=== PATIENT | female | born 1945 | race Caucasian/White ===

== ENCOUNTER 2020-10-10 05:42 | Emergency (ER) | payer OTHER ==
[~2020-10-10] VITALS: Ht 165.1 cm; Wt 100.2 kg
[2020-10-10 06:38] LABS: ABSOLUTE NEUTROPHILS 7.5 thou/uL (1.4-8.2); EOSINOPHILS 0.7 % (0.0-3.0); HEMATOCRIT 41.6 % (37.0-47.0); HEMOGLOBIN 13.6 gm/dL (12.0-15.0); LYMPHOCYTES 28.3 % (24.0-44.0); MCH 30.5 pg (26.0-34.0); MCHC 32.7 g/dL (28.0-37.0); MCV 93.3 fL (80.0-100.0); MONOCYTES 4.3 % (1.0-8.0); PLATELET COUNT 312 thou/uL (150-400); POLYS 65.7 % (36.0-66.0); RBC 4.46 mil/uL (4.20-5.00); RDW 12.5 % (10.5-14.5); WBC 11.4 thou/uL (4.0-11.0)
[2020-10-10 06:43] LABS: POTASSIUM 4.6 mmol/L (3.5-5.1)
[2020-10-10] MEDS ORDERED: TRAMADOL 50 MG50 MG PO (06:44)
[2020-10-10] MEDS ORDERED: NEXIUM 40 MG CA40 M1 PO (06:45)
[2020-10-10] MEDS ORDERED: DOXYCYCLINE PO ×2 (06:45)
[2020-10-10] MEDS ORDERED: CRESTOR40 MG PO (06:46)
[2020-10-10] MEDS ORDERED: LOPRESSOR50 MG PO (06:46)
[2020-10-10] MEDS ORDERED: GLYBURIDE 5 MG T5 M1 PO (06:47)
[2020-10-10] MEDS ORDERED: DICLOFENAC PO ×2 (06:47)
[2020-10-10] MEDS ORDERED: SUPER THERAVIT1 EACH PO (06:47)
[2020-10-10] MEDS ORDERED: ASA PO ×2 (06:47)
[2020-10-10] MEDS ORDERED: ZESTRIL5 MG PO (06:48)
[2020-10-10 06:54] LABS: ALBUMIN 3.9 g/dL (3.4-5.0); TOTAL BILIRUBIN 0.4 mg/dL (0.2-1.0); TOTAL PROTEIN 7.1 g/dL (6.4-8.2)
[2020-10-10 08:59] LABS: URINE BILIRUBIN NEGATIVE (Negative); URINE BLOOD 1+ (Negative); URINE CLARITY CLEAR; URINE COLOR YELLOW; URINE GLUCOSE-RANDOM* NEGATIVE (Negative); URINE KETONES NEGATIVE (Negative); URINE LEUKOCYTES-REFLEX NEGATIVE (Negative); URINE NITRITE-REFLEX NEGATIVE (Negative); URINE PROTEIN (DIPSTICK) NEGATIVE (Negative); URINE SPECIFIC GRAVITY <= 1.005 (1.005-1.035)
[2020-10-10 09:20] LABS: SQUAMOUS 0-3 Few /LPF (0-3)
[2020-10-10 09:21] LABS: BACTERIA-REFLEX 1-9 Few /HPF (None Seen); CASTS None Seen /LPF (None Seen); CRYSTALS None Seen /LPF (None Seen); URINE RBC 3-10 Few /HPF (NONE SEEN); URINE WBC-REFLEX 0-5 Rare /HPF (0-5)
[2020-10-10] MEDS ORDERED: ZOFRAN ODT4 MG PO ×3 (10:17→10:35)
[2020-10-10] MEDS ORDERED: MACROBID 100 M100 M1 PO ×3 (10:17→10:35)
[2020-10-10 10:38] VITALS: BP 115/54
--- NOTE | 2020-10-12 07:36 | EKG ---
[place] [address] [facility] [place] [address] ELECTROCARDIOGRAM REPORT Name: ASHA SEGOVIA 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 : 1945 Requested By: Lucho Szymanski Order Number: [id number] MD: Álvaro Scott Measurements Intervals [place] Rate: 78 P: 47 TX: 166 QRS: -63 QRSD: 141 T: 22 QT: 412 QTc: 470 Interpretive Statements Sinus rhythm Probable left atrial enlargement RBBB and LAFB Baseline wander in lead(s) V1,V2 No previous ECG available for comparison Electronically Signed On 10-12-2020 7:36:13 CDT by Álvaro Scott [email or web address] <ELECTRONICALLY SIGNED> By: Álvaro Scott MD, [facility] 10/12/20 0736 0550 0550 Álvaro Scott MD, FACC /EPI
== END 2020-10-10 10:38 | disposition home or self-care (01) ==
LOC: ER 05:42
PROVIDERS: Emergency Medicine
DX: N39.0 Urinary tract infection, site not specified (principal); M54.9 Dorsalgia, unspecified; R07.89 Other chest pain; K80.80 Other cholelithiasis without obstruction; E11.9 Type 2 diabetes mellitus without complications; Z90.710 Acquired absence of both cervix and uterus; Z90.89 Acquired absence of other organs; Z79.899 Other long term (current) drug therapy; Z88.0 Allergy status to penicillin; Z88.2 Allergy status to sulfonamides; Z91.013 Allergy to seafood; Z88.1 Allergy status to other antibiotic agents

== ENCOUNTER 2020-10-12 09:39 | Emergency (ER) | payer OTHER ==
[~2020-10-12] VITALS: Ht 165.1 cm; Wt 100.2 kg
[~2020-10-12 09:39] MED LIST: ASA PO; CRESTOR40 MG PO; DICLOFENAC PO; DOXYCYCLINE PO; GLYBURIDE 5 MG T5 M1 PO; LOPRESSOR50 MG PO; MACROBID 100 M100 M1 PO; NEXIUM 40 MG CA40 M1 PO; SUPER THERAVIT1 EACH PO; TRAMADOL 50 MG50 MG PO; ZESTRIL5 MG PO; ZOFRAN ODT4 MG PO
[2020-10-12 09:56] LABS: URINE BILIRUBIN NEGATIVE (Negative); URINE BLOOD TRACE (Negative); URINE CLARITY CLEAR; URINE COLOR YELLOW; URINE GLUCOSE-RANDOM* NEGATIVE (Negative); URINE KETONES NEGATIVE (Negative); URINE NITRITE-REFLEX NEGATIVE (Negative); URINE PROTEIN (DIPSTICK) NEGATIVE (Negative)
[2020-10-12 10:06] LABS: ABSOLUTE NEUTROPHILS 8.3 thou/uL (1.4-8.2); BASOPHILS 0.8 % (0.0-2.0); EOSINOPHILS 0.6 % (0.0-3.0); HEMATOCRIT 41.3 % (37.0-47.0); HEMOGLOBIN 13.8 gm/dL (12.0-15.0); LYMPHOCYTES 32.1 % (24.0-44.0); MCH 30.9 pg (26.0-34.0); MCHC 33.4 g/dL (28.0-37.0); MCV 92.5 fL (80.0-100.0); MONOCYTES 5.7 % (1.0-8.0); PLATELET COUNT 337 thou/uL (150-400); POLYS 60.8 % (36.0-66.0); RBC 4.47 mil/uL (4.20-5.00); WBC 13.6 thou/uL (4.0-11.0)
[2020-10-12 10:09] LABS: URINE LEUKOCYTES-REFLEX 1+ (Negative)
[2020-10-12 10:23] LABS: CALCIUM 9.2 mg/dL (8.5-10.1); CREATININE 1.1 mg/dL (0.6-1.0); POTASSIUM 4.2 mmol/L (3.5-5.1)
[2020-10-12 10:27] LABS: ALBUMIN 4.2 g/dL (3.4-5.0); TOTAL BILIRUBIN 0.4 mg/dL (0.2-1.0); TOTAL PROTEIN 7.8 g/dL (6.4-8.2)
[2020-10-12 10:28] LABS: SQUAMOUS 0-3 Few /LPF (0-3)
[2020-10-12 10:29] LABS: BACTERIA-REFLEX 1-9 Few /HPF (None Seen); CASTS None Seen /LPF (None Seen); CRYSTALS None Seen /LPF (None Seen); URINE RBC None Seen /HPF (NONE SEEN); URINE WBC-REFLEX 6-15 Few /HPF (0-5)
[2020-10-12] MEDS ORDERED: PHENERGAN 25 MG25 MG PO ×2 (14:24→14:27)
[2020-10-12 14:27] VITALS: BP 148/55
[2020-10-12] MEDS ORDERED: BENTYL 10 MG CA10 M1 PO (14:27)
== END 2020-10-12 14:27 | disposition home or self-care (01) ==
LOC: ER 09:39
PROVIDERS: Student in an Organized Health Care Education/Training Program
DX: M54.5 Low back pain (principal); R10.11 Right upper quadrant pain; E11.9 Type 2 diabetes mellitus without complications; Z90.710 Acquired absence of both cervix and uterus; Z90.89 Acquired absence of other organs; Z79.899 Other long term (current) drug therapy; Z88.0 Allergy status to penicillin; Z88.2 Allergy status to sulfonamides; Z88.1 Allergy status to other antibiotic agents; Z91.013 Allergy to seafood

== ENCOUNTER 2020-11-17 06:01 | Day surgery (SDC) | payer OTHER ==
[~2020-11-17] VITALS: Ht 165.1 cm; Wt 97.1 kg
[~2020-11-17 06:01] MED LIST changes: +ASA81BEC PO; +BENTYL 10 MG CA10 M1 PO; +CALCIUM 600 +1 EA14 PO; +CLARITIN10 MG PO; +DICLOFENAC SOD50 M1 PO; +GLIMEPIRIDE4 MG PO; +METOPROLOL TART25 MG PO; +PHENERGAN 25 MG25 MG PO; +VITAMIN B-121000 MCG PO; +WOMEN'S 50 PLU1 EAC1 PO
[2020-11-17 07:35] VITALS: BP 156/67
[2020-11-17] MEDS ORDERED: HYDROCODON-ACE1 EAC7 PO (09:06)
[2020-11-17 12:15] VITALS: BP 137/49
--- NOTE | 2020-11-17 14:25 | O ---
[facility] [address] [place] [address] OPERATIVE REPORT Name: ASHA SEGOVIA Room #: 444-P [facility]#: [id number] Admission: 11/17/20 Attend Phys: Dylan Kimball MD Discharge: Date of : 49 Report #: [id number] THIS REPORT FOR: cc: Rody Bullock MD,Rody Kimball,Dylan Day MD ~ cc: Dylna Kimball MD, Rody Bullock DATE OF SERVICE: 11/17/[address] Rody Bullock at [facility] and Dr. Dylan Kimball. PREOPERATIVE DIAGNOSES: Biliary colic, gallbladder sludge, cholecystitis. POSTOPERATIVE DIAGNOSES: Biliary colic, gallbladder sludge, cholecystitis. PROCEDURE: Laparoscopic cholecystectomy. SURGEON: Dr. Dylan Kimball. ANESTHESIA: General. DESCRIPTION OF PROCEDURE: The patient was brought to the operating room and placed on the operating table in the supine position. Sequential compression devices were placed for DVT prophylaxis. She received an appropriate preoperative dose of Mefoxin. The patient underwent a general endotracheal anesthesia and the abdomen was then prepped and draped in a sterile fashion. Skin and subcutaneous tissue around the umbilicus was then infiltrated with 0.5% Marcaine. A transverse infraumbilical skin incision was then performed using a #11 scalpel blade. Hemostasis obtained using electrocautery. Dissection was carried down through the subcutaneous tissue to the fascia, which was then grasped between 2 Tony clamps and incised with the curved Crandall scissors. Peritoneum was entered and a purse-string suture 0 Vicryl was then placed in the fascia. A 12 mm disposable Mario port was then inserted through the opening and held in place with the balloon port and the purse-string suture. Pneumoperitoneum was obtained. The level at 10-15 mmHg. Laparoscope was then inserted through this port and the two lateral 5 mm Surgiports as well as the upper midline 12 mm Surgiport were all inserted under direct visualization after infiltration with 0.5% Marcaine. An exploration was performed, which then revealed a slightly thickened dilated gallbladder. There were no other intra-abdominal abnormalities. The gallbladder was then grasped and retracted superiorly and the cystic duct and cystic artery were carefully dissected free. The triangle of safety was examined both medially and laterally and the cystic duct and cystic artery were clearly identified along with the cystic common bile duct junction. The cystic duct was then triply clipped on the common bile duct [address] [address] OPERATIVE REPORT Name: ASHA SEGOVIA Room #: 444-P [facility]#: [id number] Admission: 11/17/20 Attend Phys: Dylan Kimball MD Discharge: Date of : 49 Report #: [id number] side and doubly clipped on the gallbladder side and divided with the scissors. The cystic artery was then doubly clipped on each side and divided with the scissors. The gallbladder was then dissected free from the bed using the hook electrocautery. Prior to completing the dissection, the gallbladder was retracted superiorly and the bed inspected for hemostasis, which was obtained using the electrocautery and found to be intact. The gallbladder was then removed through the periumbilical port and sent as specimen to pathology. The port was then returned to the abdomen. The area was once again carefully inspected and hemostasis was found to be intact. The ports were then all removed under direct visualization, hemostasis intact at each port site. Pneumoperitoneum was released and the periumbilical port was then also removed under direct visualization, hemostasis intact at that port site as well. Periumbilical fascia was then closed using the 0 Vicryl purse-string suture. The skin was then closed using interrupted vertical mattress 5-0 nylon sutures and the wounds dressed with Band-Aids. The patient was then awakened from the general anesthesia, extubated, taken to the recovery room in good condition. Estimated blood loss was approximately 10 mL and the patient tolerated the procedure well. All sponge, lap and instrument counts were correct x2. <ELECTRONICALLY SIGNED> By: Dylan Kimball MD 11/17/20 1425 0942 1010 Dylan Kimball MD /nt
--- NOTE | 2020-11-17 15:45 | NUR ---
Pt transferred to unit from PACU. Pt a&ox4. Pain controlled with prn pain medications. IVF infusing. Able to ambulate and void. Tolerated diet well. Family at bedside. Call light within reach. Possible d/c to home later in the day. Will continue to monitor.
[2020-11-17 16:07] VITALS: BP 137/49
--- NOTE | 2020-11-19 12:07 | PATH ---
[facility] [address] [place] [place] [address] PATHOLOGY RPT PROCEDURE Name: ASHA SEGOVIA Room #: DEP [facility] M.R.#: [id number] Admission: 11/17/20 Date of : 49 Discharge: 11/17/20 Report #: [id number] Path Case #: [id number] [facility] Accession Number: [id number] . 01 Material submitted: . gallbladder - GALLBLADDER . 01 Clinical history: . LAPAROSCOPIC CHOLECYSTECTOMY SLUDGE IN GALLBLADDER, RIGHT UPPER QUADRANT ABDOMINAL PAIN . 02 Diagnosis: Gallbladder (cholecystectomy): - Mild chronic cholecystitis LBQ 11/19/2020 1202 Local . 02 Comment: We find no evidence of malignancy in any of the tissue examined. (SWK/db; 11/19/2020) . 02 Electronically signed: . Chidi Kolb MD, Pathologist NPI- [id number] . 01 Gross description: . Fixative: Formalin Labeled: Gallbladder Specimen received: Intact gallbladder Dimensions: 9.3 x 3.9 x 3.8 cm Serosa: We are-decker Lymph node: None identified Mucosa: Velvety, bile-stained Average wall thickness: 0.1 cm Calculi: None identified Abnormalities: None identified . Foundation Drill Operator Helper body, fundus, and the cystic duct margin in cassette A1. (CAA; 11/18/2020) [facility] 11/18/2020 0931 Local . 02 Pathologist provided ICD-10: K80.10 . 02 CPT . 503964 Specimen Comment: A courtesy copy of this report has been sent to [phone] [phone] PATHOLOGY RPT PROCEDURE Name: MT SEGOVIASARITHA Brooks Room #: [facility]#: [id number] Admission: 11/17/20 Date of : 49 Discharge: 11/17/20 Report #: [id number] Path Case #: [id number] Specimen Comment: [id number] Specimen Comment: Report sent to / DR BERNSTEIN Performed at: 01 [facility] [address] [id number] MD Terence Willard MD Phone: [phone] Performed at: 02 [facility] [address] [id number] MD Chidi Kolb MD Phone: [phone]
== END 2020-11-17 16:37 | disposition home or self-care (01) ==
LOC: OR 06:01 → TBA 06:02 → OR 09:46 → 4S 12:51 → OR 16:37
PROVIDERS: ATTEND Surgery
DX: K80.64 Calculus of gallbladder and bile duct with chronic cholecystitis without obstruction (principal); R10.11 Right upper quadrant pain; I10 Essential (primary) hypertension; E11.9 Type 2 diabetes mellitus without complications; K21.9 Gastro-esophageal reflux disease without esophagitis; Z98.890 Other specified postprocedural states; Z79.899 Other long term (current) drug therapy; Z20.822 Contact with and (suspected) exposure to COVID-19; Z90.710 Acquired absence of both cervix and uterus; Z88.8 Allergy status to other drugs, medicaments and biological substances; Z88.2 Allergy status to sulfonamides
CPT/HCPCS: 10102; 50010; 50101; 50411; 50555; 51474; 51489; 52266; 53314; 56462; 56524; 56528; 58574; 58909; 62110; 62900; 65130; 70005